=== PATIENT | female | born 1995 | race Caucasian/White ===

== ENCOUNTER 2018-09-01 12:44 | Outpatient (CLI) | payer OTHER | END 2018-09-01 12:45 | disposition critical access hospital (66) | LOC: EMS 12:44 | PROVIDERS: ATTEND Surgery | DX: M25.562 Pain in left knee (principal); X58.XXXA Exposure to other specified factors, initial encounter; Y93.G9 Activity, other involving cooking and grilling; Y92.191 Dining room in other specified residential institution as the place of occurrence of the external cause; Y99.0 Civilian activity done for income or pay | CPT/HCPCS: A0425; A0429 ==

== ENCOUNTER 2018-09-01 13:02 | Emergency (ER) | payer OTHER ==
[2018-09-01] MEDS ORDERED: ACETAMINOPHEN 325 MG TABLET PO STA (13:17)
[2018-09-01] MEDS ORDERED: IBUPROFEN 600 MG TABLET PO STA (13:17)
--- NOTE | 2018-09-01 13:20 | ED Physician Documentation ---
PD HPI LOWER EXT INJURY - Stated complaint Stated Complaint: KNEE PX - History obtained from History obtained from: Patient - History of Present Illness Type of injury: Other (was just standing with light lifting. Had helped lift a resident shortly prior to that, but did not notice knee pain at the time.). No: Fall, Twist Where injury occurred: Work Timing - details: Abrupt onset Worsened by: Moving, Palpating (anterior knee) Associated symptoms: Weakness (she says she cannot move toes/foot/nor extend at the knee), Numbness (she says she has no feeling of leg below the knee.) Similar symptoms before: Has not had sx before Recently seen: Not recently seen Review of Systems Constitutional: denies: Fever Nose: denies: Rhinorrhea / runny nose, Congestion Throat: denies: Sore throat Respiratory: denies: Cough GI: denies: Abdominal Pain Skin: denies: Abrasion (s), Laceration (s) Neurologic: reports: Focal weakness, Numbness PD PAST MEDICAL HISTORY - Past Medical History Cardiovascular: None Respiratory: None Neuro: None Musculoskeletal: None - Present Medications Home Medications: Ambulatory Orders Medication Instructions Recorded Confirmed Naproxen 500 mg PO BID #20 tablet 09/01/18 Tramadol HCl 50 mg PO Q6H PRN #15 tablet 09/01/18 - Allergies Allergies/Adverse Reactions: Allergies Allergy/AdvReac Type Severity Reaction Status Date / Time No Known Drug Allergies Allergy Verified 09/01/18 13:25 PD ED PE NORMAL - Vitals Vital signs reviewed: Yes - General General: Alert and oriented X 3, No acute distress, Well developed/nourished - Derm Derm: Normal color, Warm and dry - Extremities Extremities: Other (left knee with mild effusion. No gross laxity on ligament testing, she is tender kneecap area, without any laxity at the patellar tendon. She says she can't lift leg/extend knee and has no feeling in lower leg. She does have withdrawal to pinprick and some toe twitching to touching bottom of foot. Good color and pulses. She did not extend knee nor lift leg (says she could not) but I held her leg up and then asked her to sit forward in cart and then I relaxed hold of her leg and it stayed up, with good engagement of patellar tendon and thigh muscles. ) - Neuro Neuro: Other (see above about sensation and motor. ) Results - Vitals Vitals: Vital Signs - 24 hr 09/01/18 09/01/18 13:05 15:26 Temperature 36.5 C 36.9 C Heart Rate 79 74 Respiratory 16 16 Rate Blood Pressure 111/97 H 110/55 L O2 Saturation 100 100 Oxygen O2 Source Room air - Rads (name of study) left knee xray Radiology: Prelim report reviewed (no fractures nor acute process), EMP read contemporaneously, See rad report PD MEDICAL DECISION MAKING - ED course Complexity details: reviewed results, considered differential (Given the pop of it and then the giving out in pain subsequently, I am inclined to think a meniscal injury. Her subsequent feeling of numbness and weakness in the leg I think relates to the feedback of pain. She has good color and capillary refill so does not seem vascular. She has withdrawal to pain though she states she cannot feel touch. She is able to lift her leg up straight when I hold it up and then have her do a sit up from the cart but she says she cannot lift it up when asked to do it on her own. She is feeling better after some oral medications and with the knee brace on. She is instructed on crutches by her registered dietetic technician.), d/w patient Departure - Departure Disposition: 01 Home, Self Care Clinical Impression: Acute pain of left knee Meniscal injury Qualifiers: Encounter type: initial encounter Laterality: left Qualified Code(s): S83.8X2A - Sprain of other specified parts of left knee, initial encounter Condition: Stable Record reviewed to determine appropriate education?: Yes Instructions: ED Meniscal Injury Knee Poss Follow-Up: [facility] [Provider Group] Prescriptions: Naproxen 500 mg PO BID #20 tablet Tramadol HCl 50 mg PO Q6H PRN #15 tablet PRN Reason: Pain Comments: Your x-ray appears normal. Much of knee injuries like yours are not bony but more cartilage or ligament related. I would assume he probably had a small shift in the cartilage in the knee that caused the pop and now hurting. This wi ll likely improve over several days to week with less walking and a knee brace and some anti-inflammatories. Follow-up with orthopedics in a week to recheck it and call today or tomorrow for an appointment. Limited walking and use at work for the next week. Forms: Activity restrictions Discharge Date/Time: 09/01/18 15:27
--- NOTE | 2018-09-01 14:54 | XRAY Report ---
Reason: knee popped and gave out while standing Procedure Date: 09/01/2018 Accession Number: [id number] / [id number] Procedure: XR - Knee 3 View LT CPT Code: FULL RESULT: EXAM: LEFT KNEE RADIOGRAPHY EXAM DATE: 09/01/2018 02:44 PM. CLINICAL HISTORY: Left knee pain. COMPARISON: None. TECHNIQUE: 3 views. FINDINGS: Bones: Small cortical irregularity is seen along the medial patella. The osseous structures are otherwise intact. Joints: Normal. No effusion. No subluxations. Soft Tissues: Normal. No soft tissue swelling. IMPRESSION: Minor cortical irregularity along the medial patellar margin. Small avulsion injury in this area is not excluded. The remainder osseous structures are intact. RADIA
[2018-09-01 15:31] VITALS: BP 110/55
== END 2018-09-01 15:27 | disposition home or self-care (01) ==
LOC: EDBD → ED 13:02
DX: M25.562 Pain in left knee (principal); S83.8X2A Sprain of other specified parts of left knee, initial encounter; X50.1XXA Overexertion from prolonged static or awkward postures, initial encounter; Y93.F2 Activity, caregiving, lifting; Y99.0 Civilian activity done for income or pay
CPT/HCPCS: 1040M; 73562; 99283; A9270

== ENCOUNTER 2020-05-15 16:57 | Emergency (ER) | payer OTHER ==
[2020-05-15] MEDS ORDERED: KETOROLAC 60 MG/2 ML VIAL IM STA (17:27)
[2020-05-15] MEDS ORDERED: HYDROmorphone 1 MG/ML CARPUJECT IM STA (17:27)
--- NOTE | 2020-05-15 17:30 | ED Physician Documentation ---
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 Without specific trauma other than potentially lifting and bending at work developed mild right low back pain last night which was more severe today. It hurts with bending and motion. No urinary complaints. No fever. No saddle anesthesia. No history of back troubles. No possibility of . Review of Systems Constitutional: denies: Fever, Chills Cardiac: denies: Chest pain / pressure, Palpitations Respiratory: denies: Dyspnea, Cough PD PAST MEDICAL HISTORY - Past Medical History Cardiovascular: None Respiratory: None Neuro: None Musculoskeletal: None - Past Surgical History Past Surgical History: No - Present Medications Home Medications: Ambulatory Orders Medication Instructions Recorded Confirmed Naproxen 500 mg PO BID #20 tablet 09/01/18 Tramadol HCl 50 mg PO Q6H PRN #15 tablet 09/01/18 Cyclobenzaprine [Flexeril] 10 mg PO TID PRN #20 tablet 05/15/20 Hydrocodone/Acetaminophen 1 - 2 tab PO Q6H PRN #15 tablet 05/15/20 [Hydrocodone-Acetamin 5-325 mg] Ibuprofen [Motrin] 800 mg PO Q8H PRN #30 tablet 05/15/20 - Allergies Allergies/Adverse Reactions: Allergies Allergy/AdvReac Type Severity Reaction Status Date / Time No Known Drug Allergies Allergy Verified 05/15/20 17:05 - Social History Does the pt smoke?: No Smoking Status: Never smoker Does the pt drink ETOH?: No Does the pt have substance abuse?: No - Immunizations Immunizations are current?: Yes - POLST Patient has POLST: No PD ED PE NORMAL - Vitals Vital signs reviewed: Yes - General General: Alert and oriented X 3, No acute distress - Back Back: Other (No midline spinal tenderness. She does have muscular tenderness of the right low paralumbar muscles, not the flank.) - Extremities Extremities: Other (The patient has equal and normal Achilles and patellar reflexes bilaterally. Normal sensation in all areas of the legs. Patient denies saddle anesthesia. Normal strength in flexion-extension at the ankles, knees, and flexion of the hips.) - Neuro Neuro: Alert and oriented X 3, Normal speech Results - Vitals Vitals: Vital Signs - 24 hr 09/23/20 17:02 Temperature 36.4 C L Heart Rate 113 H Respiratory 16 Rate Blood Pressure 129/79 O2 Saturation 98 Oxygen O2 Source Room air PD MEDICAL DECISION MAKING - ED course ED course: This patient has seemingly uncomplicated musculoskeletal back pain. The patient has no "red flags." Specifically denies IV drug use, fevers, incontinence, saddle anesthesia. Spinal epidural abscess was considered, given that the patient has no fever, is not diabetic, has no spinal tenderness, does not use IV drugs, and has no bilateral neurologic symptoms, the diagnosis of spinal epidural abscess is considered exceedingly unlikely. Departure - Departure Disposition: Home, Self Care Clinical Impression: Low back pain Qualifiers: Chronicity: acute Back pain laterality: right Sciatica presence: without sciatica Qualified Code(s): M54.5 - Low back pain Condition: Good Record reviewed to determine appropriate education?: Yes Instructions: ED Spasm Back No Trauma, ED Sprain Strain Lumbar Prescriptions: Cyclobenzaprine [Flexeril] 10 mg PO TID PRN #20 tablet PRN Reason: Spasms Hydrocodone/Acetaminophen [Hydrocodone-Acetamin 5-325 mg] 1 - 2 tab PO Q6H PRN #15 tablet PRN Reason: Pain Ibuprofen [Motrin] 800 mg PO Q8H PRN #30 tablet PRN Reason: PAIN &/OR FEVER Comments: Call your doctor to arrange a follow-up appointment, make the next available appointment. In the interim, return anytime if worse or if new symptoms develop. Forms: Activity restrictions
[2020-05-15 18:07] VITALS: BP 114/76
== END 2020-05-15 19:10 | disposition home or self-care (01) ==
LOC: ED 16:57
DX: M54.5 Low back pain (principal)
CPT/HCPCS: 96372; 99283; J1170

== ENCOUNTER 2020-06-02 09:13 | Emergency (ER) | payer OTHER ==
--- NOTE | 2020-06-02 09:19 | ED Physician Documentation ---
PD HPI DYSPNEA - Stated complaint Stated Complaint: DIFFICULTY BREATHING, CP, BILAT FEET SWELLING - History obtained from History obtained from: Patient - History of Present Illness Timing - onset: How many days ago (3-4 days of progressive bilateral leg edema, dyspnea on exertion and now at rest, and chest discomfort. Also noting new abdominal distension as well. No cough nor fever.) Timing - onset during: Rest, Light activity Timing - duration: Days (3-4) Timing - details: Abrupt onset, Still present Inciting event(s): Exercise. No: URI Associated symptoms: Chest pain / discomfort (tightness). No: Fever, Cough Similar symptoms before: Has not had sx before Recently seen: Emergency Dept (2 weeks ago for lower back pain on ROM, presumed musculoskeletal and Rx with Ibuprofen, Flexeril, and hydrocodone. Pt states back was improved but not resolved and hurting more again the past several days since out of meds.) Review of Systems Constitutional: denies: Fever, Chills Nose: denies: Rhinorrhea / runny nose, Congestion Throat: denies: Sore throat Respiratory: denies: Cough GI: denies: Abdominal Pain, Nausea, Vomiting, Diarrhea, Bloody / black stool : denies: Dysuria, Frequency, Discharge, Missed period (last menses were light about 4 weeks ago, and have been fairly regular.), Now EGA Skin: denies: Rash Musculoskeletal: reports: Back pain (She has had lower thoracolumbar back pain both sides for the last couple of weeks without noted trauma. Seen in the ER recently for this.) Neurologic: denies: Generalized weakness, Focal weakness, Numbness, Near syncope Endocrine: reports: Weight gain (She has noticed fairly steady mild weight gain over the last 4 to 5 months.). denies: Weight loss Immunocompromised: denies: Immunocompromised PD PAST MEDICAL HISTORY - Past Medical History Cardiovascular: None Respiratory: None Neuro: None Musculoskeletal: None - Past Surgical History Past Surgical History: No - Present Medications Home Medications: Ambulatory Orders Medication Instructions Recorded Confirmed Naproxen 500 mg PO BID #20 tablet 09/01/18 Tramadol HCl 50 mg PO Q6H PRN #15 tablet 09/01/18 Cyclobenzaprine [Flexeril] 10 mg PO TID PRN #20 tablet 05/15/20 Hydrocodone/Acetaminophen 1 - 2 tab PO Q6H PRN #15 tablet 05/15/20 [Hydrocodone-Acetamin 5-325 mg] Ibuprofen [Motrin] 800 mg PO Q8H PRN #30 tablet 05/15/20 - Allergies Allergies/Adverse Reactions: Allergies Allergy/AdvReac Type Severity Reaction Status Date / Time No Known Drug Allergies Allergy Verified 06/02/20 09:25 - Social History Does the pt smoke?: No Smoking Status: Never smoker Does the pt drink ETOH?: No Does the pt have substance abuse?: No - Immunizations Immunizations are current?: Yes - POLST Patient has POLST: No PD ED PE NORMAL - Vitals Vital signs reviewed: Yes - General General: Alert and oriented X 3, Well developed/nourished, Other (She is tachycardic with some tachypnea and initial respiratory rate 28-32. There is no wheezing noted. She is able to talk in sentences) - HEENT HEENT: Moist mucous membranes, Pharynx benign - Neck Neck: Supple, no meningeal sign, No adenopathy - Cardiac Cardiac: No rub. No: RRR (tachy without murmur) - Respiratory Respiratory: No respiratory distress (fast breathing but not labored. ). No: Clear bilaterally (Fine crackles in the bottom third of both lung spicer. No coarse sounds are heard. No wheezing.) - Abdomen Abdomen: Soft, No organomegaly, Other (full distended abdomen feeling c/w advanced . ) - Female Female : Deferred - Back Back: No CVA TTP - Derm Derm: Normal color, Warm and dry - Extremities Extremities: No tenderness to palpate, Normal ROM s pain, No calf tenderness / cord, Other (2+ edema in both lower legs and ankles. ) - Neuro Neuro: Alert and oriented X 3, No motor deficit, Normal speech Eye Opening: Spontaneous Motor: Obeys Commands Verbal: Oriented GCS Score: 15 Results - Vitals Vitals: Vital Signs - 24 hr 06/02/20 06/02/20 06/02/20 09:25 09:58 11:31 Temperature 36.9 C 36.3 C L Heart Rate 138 H 135 H 126 H Respiratory 32 H 32 H 29 H Rate Blood Pressure 136/105 H 131/106 H 126/105 H O2 Saturation 98 97 96 06/02/20 06/02/20 06/02/20 12:37 13:48 14:11 Temperature 36.7 C Heart Rate 126 H 116 H 130 H Respiratory 26 H 25 H 27 H Rate Blood Pressure 119/100 H 124/96 H 134/99 H O2 Saturation 94 92 94 Oxygen O2 Source Room air - EKG (time done) 09:32 Rate: Rate (enter#) (134) Rhythm: Sinus tachycardia [place]: Normal Intervals: Normal [place] QRS: Normal Ischemia: Normal ST segments. No: ST elevation c/w ischemia, ST depression - Labs Labs: Laboratory Tests 06/02/20 06/02/20 06/02/20 09:36 09:40 09:40 WBC 18.1 H RBC 3.96 L Hgb 12.2 Hct 37.1 MCV 93.7 MCH 30.8 MCHC 32.9 RDW 14.1 Plt Count 656 H MPV 10.0 Neut # (Auto) 14.9 H Lymph # (Auto) 2.3 [place] # (Auto) 0.6 Eos # (Auto) 0.0 Baso # (Auto) 0.1 Absolute Nucleated RBC 0.00 Nucleated RBC % 0.0 D-Dimer Sodium 134 L Potassium 3.9 Chloride 101 Carbon Dioxide 20 L Anion Gap 13.0 BUN 10 Creatinine 0.9 Estimated GFR (MDRD) 76 L Glucose 107 H Calcium 8.7 Magnesium Total Bilirubin 1.0 AST 41 ALT 16 Alkaline Phosphatase 449 H Troponin I High Sens B-Natriuretic Peptide Total Protein 7.5 Albumin 2.0 L Globulin 5.5 H Albumin/Globulin Ratio 0.4 L Lipase 14 L Serum HCG, Qual HCG, Quant 7729.00 Urine Color Urine Clarity Urine pH Ur Specific [place] Urine Protein Urine Glucose (UA) Urine Ketones Urine Occult Blood Urine Nitrite Urine Bilirubin Urine Urobilinogen Ur Leukocyte Esterase Urine RBC Urine WBC Ur Squamous Epith Cells Urine Bacteria Ur Microscopic Review Urine Culture Comments 06/02/20 06/02/20 06/02/20 09:40 09:46 09:46 WBC RBC Hgb Hct MCV MCH MCHC RDW Plt Count MPV Neut # (Auto) Lymph # (Auto) [place] # (Auto) Eos # (Auto) Baso # (Auto) Absolute Nucleated RBC Nucleated RBC % D-Dimer Sodium Potassium Chloride Carbon Dioxide Anion Gap BUN Creatinine Estimated GFR (MDRD) Glucose Calcium Magnesium 2.3 Total Bilirubin AST ALT Alkaline Phosphatase Troponin I High Sens 63.9 H* B-Natriuretic Peptide 4002 H Total Protein Albumin Globulin Albumin/Globulin Ratio Lipase Serum HCG, Qual HCG, Quant Urine Color Urine Clarity Urine pH Ur Specific [place] Urine Protein Urine Glucose (UA) Urine Ketones Urine Occult Blood Urine Nitrite Urine Bilirubin Urine Urobilinogen Ur Leukocyte Esterase Urine RBC Urine WBC Ur Squamous Epith Cells Urine Bacteria Ur Microscopic Review Urine Culture Comments 06/02/20 06/02/20 06/02/20 09:46 09:46 10:25 WBC RBC Hgb Hct MCV MCH MCHC RDW Plt Count MPV Neut # (Auto) Lymph # (Auto) [place] # (Auto) Eos # (Auto) Baso # (Auto) Absolute Nucleated RBC Nucleated RBC % D-Dimer > 1050.0 H Sodium Potassium Chloride Carbon Dioxide Anion Gap BUN Creatinine Estimated GFR (MDRD) Glucose Calcium Magnesium Total Bilirubin AST ALT Alkaline Phosphatase Troponin I High Sens B-Natriuretic Peptide Total Protein Albumin Globulin Albumin/Globulin Ratio Lipase Serum HCG, Qual POSITIVE HCG, Quant Urine Color YELLOW Urine Clarity CLOUDY Urine pH 6.0 Ur Specific [place] 1.025 Urine Protein 100 H Urine Glucose (UA) NEGATIVE Urine Ketones NEGATIVE Urine Occult Blood MODERATE H Urine Nitrite NEGATIVE Urine Bilirubin SMALL H Urine Urobilinogen 2 H Ur Leukocyte Esterase LARGE H Urine RBC 6-10 H Urine WBC >25 H Ur Squamous Epith Cells MANY Squamous H Urine Bacteria Many H Ur Microscopic Review INDICATED Urine Culture Comments NOT INDICATED - Rads (name of study) chest xray Radiology: Prelim report reviewed (Increased vascularity consistent with CHF acutely. No focal infiltrates.), See rad report OB U/S Radiology: Prelim report reviewed, See rad report (36 week gestational IUP with good heart beat; oligohydramnios. ) PD MEDICAL DECISION MAKING - ED course Complexity details: reviewed results (Positive preg and obvious on bedside u/s (not ascitic nor related to the heart failure), so get formal U/S. ), re-evaluated patient, considered differential (consider renal failure, cardiomyopathy, neprhotic syndrome, anemia. Also will eval abd fullness and get preg test.), d/w patient ED course: Initially thinking cardiomyopathy or kidney failure but with the near term , would consider more likely related cardiomyopathy or high flow heart failure though I do not really hear any heart murmurs or valvular problem. She will need more advanced care than available at our facility. I did consult ACCOUNTING MACHINE MECHANIC Dr. Card about disposition. She is a [facility] patient and I talked with the [place] [facility] transfer center who discussed it with [facility] maternal- medicine. The [place] ocean export coordinator called me back and said their service felt she should go to the and we were to arrange transfer ourselves with that. He did give a referral verification number to our [facility]. I talked with the transfer center and then Dr. merritt who accepted transfer of the patient. This initial transfer discussions with [facility] and the call back, then getting Transfer center and then [facility] service for transfer did lead to prolonged ER stay. However, patient stable and improving breathing during ER stay. I was treating the heart failure with diuretic and also gave her some pain medicine for her back IV. Diltiazem for PO/HR. She was feeling improved with some of this though had not had a large amount of diuresis. She is given 40 mg of Lasix again. I also started her on a low-dose nitro drip because of the diastolic hypertension. This was changed to hydralazine after discussion with the maternal- service provider. The patient's heart rate improved to approximately 110. Her respiratory rate was improved and unlabored. Her O2 sats remained good. She does appear in stable condition though still concerning with the acute pulmonary edema related to . Consider cardiomyopathy still. 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
[2020-06-02 09:51] LABS: BASOPHILS # (AUTO) 0.1 10^3/uL (0.0-0.1); BASOPHILS % (AUTO) 0.4 %; EOSINOPHILS % (AUTO) 0.1 %; HGB - HEMOGLOBIN 12.2 g/dL (12.0-16.0); LYMPHOCYTES # (AUTO) 2.3 10^3/uL (1.5-3.5); LYMPHOCYTES % (AUTO) 12.6 %; MEAN CORPUSCULAR HEMOGLOBIN 30.8 pg (27.0-31.0); MEAN CORPUSCULAR HGB CONC 32.9 g/dL (32.0-36.0); MEAN CORPUSCULAR VOLUME 93.7 fL (81.0-99.0); MONOCYTES # (AUTO) 0.6 10^3/uL (0.0-1.0); MONOCYTES % (AUTO) 3.5 %; NEUTROPHILS # (AUTO) 14.9 10^3/uL (1.5-6.6); NEUTROPHILS % (AUTO) 82.1 %; PLT - PLATELET COUNT 656 10^3/uL (130-450); RED BLOOD COUNT 3.96 10^6/uL (4.20-5.40); RED CELL DISTRIBUTION WIDTH 14.1 % (12.0-15.0); WHITE BLOOD COUNT 18.1 x10^3/uL (4.8-10.8)
--- NOTE | 2020-06-02 10:00 | XRAY Report ---
PROCEDURE: Chest 1 View X-Ray INDICATIONS: Chest Pain TECHNIQUE: One view of the chest was acquired. COMPARISON: None FINDINGS: Surgical changes and devices: None. Lungs and pleura: There is a small left pleural effusion. Diffuse interstitial radiopacities are pres ent throughout both lungs. There is likely left basilar consolidation present. Lung volumes are low. Mediastinum: Mediastinal contours appear normal. Heart size is normal. Bones and chest wall: No suspicious bony lesions. Overlying soft tissues appear unremarkable. IMPRESSION: 1. Left pleural effusion and interstitial radiopacities consistent with fluid overload and edema. 2. Probable consolidation at the left lung base. Differential considerations include compressive atel ectasis in the setting of an effusion versus pulmonary consolidation in the setting of aspiration or infection. Short interval follow-up is recommended to exclude underlying pulmonary neoplasm. Reviewed by: Katrina Sesay MD on 06/02/2020 9:59 AM PDT Approved by: Katrina Sesay MD on 06/02/2020 9:59 AM PDT Station ID: [id number]
[2020-06-02] MEDS ORDERED: HYDROmorphone 0.5 MG/0.5 ML SYRINGE IVP STA (10:02)
[2020-06-02 10:04] LABS: ALBUMIN/GLOBULIN RATIO 0.4 (1.0-2.2); CALCIUM 8.7 mg/dL (8.5-10.3); CREATININE 0.9 mg/dL (0.4-1.0); TOTAL PROTEIN 7.5 g/dL (6.7-8.2)
[2020-06-02] MEDS ORDERED: FUROSEMIDE 40 MG/4 ML VIAL IVP STA ×2 (10:16→12:22)
[2020-06-02 10:40] LABS: GLUCOSE, URINE (UA) NEGATIVE (NEGATIVE); KETONES,URINE (UA) NEGATIVE (NEGATIVE); LEUKOCYTE ESTERASE, URINE LARGE (NEGATIVE); NITRITE,URINE NEGATIVE (NEGATIVE); OCCULT BLOOD,URINE MODERATE (NEGATIVE); PROTEIN,URINE 100 mg/dL (NEGATIVE); UROBILINOGEN,URINE 2 E.U./dL (NORMAL)
[2020-06-02 10:42] LABS: CLARITY,URINE CLOUDY (CLEAR)
[2020-06-02 10:48] LABS: BACTERIA,URINE Many /HPF (None Seen); BILIRUBIN,URINE SMALL (NEGATIVE); ICTOTEST,URINE POSITIVE; SQUAMOUS EPITHELIAL CELL,UR MANY Squamous (<= Few)
[2020-06-02 10:51] LABS: HCG,QUALITATIVE BLOOD POSITIVE
[2020-06-02] MEDS ORDERED: cefTRIAXone 1 GM VIAL IVP STA (11:41)
[2020-06-02] MEDS ORDERED: ONDANSETRON 4 MG/2 ML VIAL IVP STA ×2 (12:23→14:47)
--- NOTE | 2020-06-02 12:49 | Ultrasound Report ---
PROCEDURE: OB 14+ Weeks INDICATIONS: / dyspnea OUTSIDE/PRIOR DATING DATA: Last menstrual period (LMP): 05/04/2020. LMP-based estimated date of delivery (MADAI): 02/08/2021. First dating scan (date and location): 06/02/2020. Estimated date of delivery (MADAI) from first dating scan: 06/29/2020. TECHNIQUE: Real-time scanning was performed of the fetus, with image documentation and biometric measurements. Endovaginal scanning: Not performed COMPARISON: None. FINDINGS: General: A single living intrauterine gestation is present. Presentation: Vertex Placenta: Placental position is anterior. Given the lack of amniotic fluid, the inferior margin of t he placenta is not well appreciated. Amniotic fluid index: 0.5 cm cm. heart rate: 119 beats per minute. Maternal cervical canal: 3.2 cm long; normal length is 2.5 cm or more. biometrics: Biparietal diameter: 9.2 cm, 37 weeks, 3 days Head circumference: 32 0.7 cm, 37 weeks, 1 day Abdominal circumference: 31.0 cm, 35 weeks, 0 days Femur length: 7.1 cm, 36 weeks, 1 day Estimated gestational age from initial scan: not applicable. Composite gestational age from present scan: 36 weeks, 1 day Estimated weight and percentile: 2765 g Measurement variability for biometric dating: +/- 10 days from 12-20 weeks gestation, +/- 2 weeks fro m 20-30 weeks gestation, +/- 3 weeks for 30 weeks gestation or later. Anatomic survey: Please note, visualization of the anatomy was markedly limited given the extreme la ck of amniotic fluid and advanced dates. Neuro: Not examined Nuchal skin fold: Not examined Face: Not examined Spine: Not examined Heart: 4-chambered heart not well visualized. The ventricular outflow tracts were not well visualize d. Diaphragm: Not well visualized Stomach: Left-sided stomach is present. Kidneys: Not well visualized Cord: Not well visualized Bladder: Normal in size. Extremities: The left upper and left lower limbs were not well visualized. The right upper and right lower limbs have a normal sonographic appearance. IMPRESSION: 1. Single live uterine gestation with a composite gestational age of 36 weeks, 1 day. 2. Oligohydramnios. Given the extremely low amniotic fluid, a detailed anatomic survey was not possib le. 3. Inferior margin of the placenta is not visualized given the extreme oligohydramnios. Placenta prev ia cannot be excluded on this study. These findings were discussed with Dr. Ward by the icu registered nurse at 12:20 PM on 06/02/2020. Reviewed by: Katrina Sesay MD on 06/02/2020 12:48 PM PDT Approved by: Katrina Sesay MD on 06/02/2020 12:48 PM PDT Station ID: [id number]
[2020-06-02] MEDS ORDERED: diltiaZEM INJ 5 MG/ML VIAL IVP STA (13:14)
[2020-06-02] MEDS ORDERED: NITROGLYCERIN 50 MG/250 ML 50 MG/250 ML BOTTLE IV STA (13:15)
[2020-06-02 14:12] VITALS: BP 134/99
[2020-06-02] MEDS ORDERED: hydrALAZINE INJ 20 MG/ML VIAL IVP STA (14:26)
[2020-06-02] MEDS ORDERED: ONDANSETRON 4 MG/2 ML VIAL ONE (14:58)
== END 2020-06-02 14:55 | disposition short-term general hospital (02) ==
LOC: ED 09:13
DX: O90.3 Peripartum cardiomyopathy (principal); O99.413 Diseases of the circulatory system complicating pregnancy, third trimester; I11.0 Hypertensive heart disease with heart failure; I50.30 Unspecified diastolic (congestive) heart failure; I49.8 Other specified cardiac arrhythmias; O41.03X0 Oligohydramnios, third trimester, not applicable or unspecified; Z3A.36 36 weeks gestation of pregnancy
CPT/HCPCS: 36415; 71045; 76805; 80053; 81001; 83690; 83735; 83880; 84484; 84702; 84703; 85025; 85379; 93005; 96365; 96375; 96376; 99284; 99291; J1170; 81003; 87086

== ENCOUNTER 2023-10-15 08:00 | Outpatient (CLI) | payer MEDICAID, OTHER ==
[2023-10-15 21:19] LABS: CHLAMYDIA TRACHOMATIS DNA NEGATIVE (NEGATIVE); NEISSERIA GONORRHOEAE DNA NEGATIVE (NEGATIVE)
[2023-10-15 21:59] LABS: BACTERIAL VAGINOSIS DNA NEGATIVE (NEGATIVE); CANDIDA GLABRATA DNA NEGATIVE (NEGATIVE); CANDIDA GROUP DNA NEGATIVE (NEGATIVE); CANDIDA KRUSEI DNA NEGATIVE (NEGATIVE); TRICHOMONAS VAGINALIS DNA NEGATIVE (NEGATIVE)
== END 2023-10-15 23:59 | disposition home or self-care (01) ==
LOC: LAB.WC 08:00
PROVIDERS: ATTEND Nurse Practitioner
DX: Z11.3 Encounter for screening for infections with a predominantly sexual mode of transmission (principal)
CPT/HCPCS: 81514; 87491; 87591; 87661